=== PATIENT | female | born 1945 | race Caucasian/White ===

== ENCOUNTER 2017-10-03 05:21 | Day surgery (SDC) | payer MEDICARE ==
[~2017-10-03] VITALS: Ht 147.3 cm; Wt 64.1 kg
[~2017-10-03 05:21] MED LIST: ASCO10004 PO; ASPI-496 PO; ATOR80TA PO; CALC-126 PO; CARV3.1212 PO; CARV40CP PO; CITA20TA9 PO; COREG PO; CYCL-259 PO; DILT180C2 PO; DIPH1TAB PO; FLUT9.9S INH; GLUC-121 PO; IBUP-1223 PO; METH5TAB PO; MULT-658 PO; OMEP20TA62 PO; OXYC-306 PO; OXYC-307 PO; POTA20TA89 PO; PREG75CA PO; RABE20TA18 PO; SPIR25TA PO; TELM1TAB PO; VALA500T4 PO; VIT1TABL32 PO
[2017-10-03] MEDS ORDERED: LACTATED RINGERS 1,000 ML IV SCH (05:54)
[2017-10-03] MEDS ORDERED: BUPIVACAINE/PF 0.5% ONE (06:08)
[2017-10-03 06:31] VITALS: BP 128/73
[2017-10-03] MEDS ORDERED: FENTANYL PF 100 MCG/2ML ONE (06:39)
[2017-10-03] MEDS ORDERED: MIDAZOLAM 1 MG/ML, 2ML ONE (06:39)
[2017-10-03] MEDS ORDERED: PROPOFOL 50 ML ONE (06:40)
[2017-10-03] MEDS ORDERED: LIDOCAINE GEL 2%, 5ML ONE (06:42)
[2017-10-03 06:48] LABS: BLOOD UREA NITROGEN 15 mg/dL (7-18)
[2017-10-03 06:52] LABS: ASPARTATE AMINO TRANSFERASE 19 U/L (15-37)
[2017-10-03] MEDS ORDERED: CEFAZOLIN 1,000 MG ONE ×2 (07:11)
[2017-10-03] MEDS ORDERED: ONDANSETRON 2MG/ML, 2ML ONE (07:11)
[2017-10-03] MEDS ORDERED: BACITRACIN 50,000 UNIT ONE (07:25)
[2017-10-03] MEDS ORDERED: ONDANSETRON 2MG/ML, 2ML IVPush PRN (07:30)
[2017-10-03] MEDS ORDERED: FENTANYL PF 100 MCG/2ML IV PRN (07:30)
[2017-10-03] MEDS ORDERED: HYDROmorphone 1 MG/ML, 1ML IV PRN (07:30)
[2017-10-03] MEDS ORDERED: OXYcodone 5 MG/5 ML ORAL.SOL UDC PO PRN (07:30)
[2017-10-03] MEDS ORDERED: LABETALOL 5MG/ML, 20ML IV PRN (07:30)
[2017-10-03] MEDS ORDERED: MIDAZOLAM 1 MG/ML, 2ML IV PRN (07:30)
[2017-10-03] MEDS ORDERED: EPHEDRINE 50 MG/ML, 1ML IVPush PRN (07:30)
[2017-10-03] MEDS ORDERED: ACETAMINOPHEN 325 MG TABLET PO PRN (07:30)
[2017-10-03] MEDS ORDERED: PROPOFOL 10 MG/ML, 20ML ONE (08:02)
[2017-10-03] MEDS ORDERED: ACETAMINOPHEN 650 MG/20.3 ML UDC ONE (09:27)
[2017-10-03] MEDS ORDERED: OXYcodone 5 MG/5 ML ORAL.SOL UDC ONE (09:28)
== END 2017-10-03 11:15 | disposition home or self-care (01) ==
LOC: OUT 05:21
PROVIDERS: ATTEND Orthopaedic Surgery
DX: G56.01 Carpal tunnel syndrome, right upper limb (principal); M89.9 Disorder of bone, unspecified
CPT/HCPCS: 20680; 36415; 64721; 73100; 76000; 80053; 93005; J0690; J2250; J2405; J2704; J3010; J3490; J7120